=== PATIENT | male | born 1950 | race Asian ===

== ENCOUNTER 2019-02-08 00:21 | Outpatient (CLI) | payer MEDICARE, MEDICAID ==
[~2019-02-08 00:21] MED LIST: ACET-3068 PO; ASPI-1265 PO; ATOR20TA PO; CANA300T PO; HYDR-4383 PO; IBUP-1985 PO; INSU100V12 SQ; LIRA0.6P2 SQ; LORA10TA7 PO; LOSA25TA96 PO; METF500T PO
== END 2019-02-08 23:59 | disposition home or self-care (01) ==
LOC: DIABETIC 00:21
PROVIDERS: ATTEND Specialist
DX: E11.65 Type 2 diabetes mellitus with hyperglycemia (principal); I10 Essential (primary) hypertension; Z79.84 Long term (current) use of oral hypoglycemic drugs; Z79.82 Long term (current) use of aspirin; Z79.899 Other long term (current) drug therapy; Z88.0 Allergy status to penicillin
CPT/HCPCS: G0108

== ENCOUNTER 2019-05-09 02:21 | Outpatient (CLI) | payer MEDICARE, MEDICAID | END 2019-05-09 23:59 | disposition home or self-care (01) | LOC: DIABETIC 02:21 | PROVIDERS: ATTEND Specialist | DX: E11.65 Type 2 diabetes mellitus with hyperglycemia (principal); Z79.4 Long term (current) use of insulin; Z79.84 Long term (current) use of oral hypoglycemic drugs | CPT/HCPCS: G0108 ==